=== PATIENT | male | born 1985 | race Two or more races ===

== ENCOUNTER 2018-10-22 06:35 | Emergency (ER) | payer SELFPAY ==
[~2018-10-22] VITALS: Ht 160 cm; Wt 67.1 kg
[2018-10-22] MEDS ORDERED: IV NORMAL SALINE 1000ML BAG 1,000 ML IV SCH (06:54)
--- NOTE | 2018-10-22 06:59 | PHYS DOC ---
Past Medical History Additional Past Surgical Histo: epidural Alcohol Use: Rarely Drug Use: None Adult General Chief Complaint Chief Complaint: ABDOMINAL PAIN HPI HPI Patient is a 38 year old male who presents with right lower quadrant abdominal pain that started early this morning. It has been getting worse over time. Describes it as a burning sensation with some nausea. Worse with movement. Worse with bumps on the car ride to the emergency department. Worse with walking. No vomiting or diarrhea. No radiation of the discomfort. Does note some dysuria. No hematuria. No fever. Patient notes that he had a relatively recent work injury, injuring his back. He had an epidural for this and is on 3 medicines that neither patient nor can recall for me. Does not have any chronic, ongoing health issues other than the injury.[] Review of Systems Review of Systems Constitutional: Denies fever or chills [] Eyes: Denies change in visual acuity, redness, or eye pain [] HENT: Denies nasal congestion or sore throat [] Respiratory: Denies cough or shortness of breath [] Cardiovascular: No chest pain or palpitations[] GI: See history of present illness[] : Denies dysuria or hematuria [] Musculoskeletal: Denies back pain beyond usual discomfort following his injury or joint pain [] Integument: Denies rash or skin lesions [] Neurologic: Denies headache, focal weakness or sensory changes [] Endocrine: Denies polyuria or polydipsia [] All other systems were reviewed and found to be within normal limits, except as documented in this note. Current Medications Current Medications Current Medications Medications (Trade) Dose Ordered Sig/Gianfranco Start Time Stop Time Status Last Admin Dose Admin Ketorolac Tromethamine (Toradol 15mg Vial) 15 mg 1X ONCE 10/22/18 08:15 10/22/18 08:16 10/22/18 08:14 15 MG Metoclopramide HCl (Reglan Vial) 10 mg 1X ONCE 10/22/18 07:30 10/22/18 07:31 DC 10/22/18 07:29 10 MG Morphine Sulfate (Morphine Sulfate) 4 mg PRN Q15MIN PRN 10/22/18 07:00 10/23/18 06:59 10/22/18 07:52 4 MG Ondansetron HCl (Zofran) 8 mg 1X ONCE 10/22/18 08:15 10/22/18 08:16 10/22/18 08:13 8 MG Sodium Chloride 1,000 ml @ 100 mls/hr Q10H 10/22/18 06:54 10/22/18 16:53 10/22/18 07:13 100 MLS/HR Allergies Allergies Allergies Coded Allergies Type Severity Reaction Last Updated Verified No Known Drug Allergies 10/22/18 No Physical Exam Physical Exam Constitutional: Well developed, well nourished, mild discomfort, holding still, non-toxic appearance. [] HENT: Normocephalic, atraumatic, bilateral external ears normal, oropharynx moist, no oral exudates, nose normal. [] Eyes: PERRLA, EOMI, conjunctiva normal, no discharge. [] Neck: Normal range of motion, no tenderness, supple, no stridor. [] Cardiovascular:Heart rate regular rhythm, no murmur [] Lungs & Thorax: Bilateral breath sounds clear to auscultation [] Abdomen: Bowel sounds normal, soft, tenderness in the right lower quadrant with positive Rovsing's sign, no masses, no pulsatile masses. [] Skin: Warm, dry, no erythema, no rash. [] Back: No tenderness, no CVA tenderness. [] Extremities: No tenderness, no cyanosis, no clubbing, ROM intact, no edema. [] Neurologic: Alert and oriented X 3, normal motor function, normal sensory function, no focal deficits noted. [] Psychologic: Affect normal, judgement normal, mood normal. [] Current Patient Data Vital Signs Vital Signs Date Time Temp Pulse Resp B/P (MAP) Pulse Ox O2 Delivery O2 Flow Rate FiO2 10/22/18 07:52 18 97 Room Air 10/22/18 07:02 97.5 74 123/73 (90) 97.5 Lab Values Laboratory Tests Test 10/22/18 06:40 10/22/18 06:50 Urine Collection Type Unknown Urine Color Yellow Urine Clarity Clear Urine pH 6.5 Urine Specific [place] 1.025 Urine Protein Negative mg/dL (NEG-TRACE) Urine Glucose (UA) Negative mg/dL (NEG) Urine Ketones (Stick) Negative mg/dL (NEG) Urine Blood Large (NEG) Urine Nitrite Negative (NEG) Urine Bilirubin Negative (NEG) Urine Urobilinogen Dipstick 0.2 mg/dL (0.2 mg/dL) Urine Leukocyte Esterase Negative (NEG) Urine RBC >40 /HPF (0-2) Urine WBC 1-4 /HPF (0-4) Urine Squamous Epithelial Cells Occ /LPF Urine Bacteria Few /HPF (0-FEW) Urine Mucus Marked /LPF White Blood Count 8.5 x10^3/uL (4.0-11.0) Red Blood Count 4.53 x10^6/uL (4.30-5.70) Hemoglobin 13.9 g/dL (13.0-17.5) Hematocrit 41.3 % (39.0-53.0) Mean Corpuscular Volume 91 fL (79-100) Mean Corpuscular Hemoglobin 31 pg (25-35) Mean Corpuscular Hemoglobin Concent 34 g/dL (31-37) Red Cell Distribution Width 13.5 % (11.5-14.5) Platelet Count 375 x10^3/uL (140-400) Neutrophils (%) (Auto) 51 % (31-73) Lymphocytes (%) (Auto) 40 % (24-48) Monocytes (%) (Auto) 7 % (0-9) Eosinophils (%) (Auto) 1 % (0-3) Basophils (%) (Auto) 0 % (0-3) Neutrophils # (Auto) 4.4 x10^3uL (1.8-7.7) Lymphocytes # (Auto) 3.4 x10^3/uL (1.0-4.8) Monocytes # (Auto) 0.6 x10^3/uL (0.0-1.1) Eosinophils # (Auto) 0.1 x10^3/uL (0.0-0.7) Basophils # (Auto) 0.0 x10^3/uL (0.0-0.2) Prothrombin Time 12.8 SEC (11.7-14.0) Prothrombin Time INR 1.0 (0.8-1.1) Sodium Level 143 mmol/L (136-145) Potassium Level 3.3 mmol/L (3.5-5.1) L Chloride Level 105 mmol/L (98-107) Carbon Dioxide Level 28 mmol/L (21-32) Anion Gap 10 (6-14) Blood Urea Nitrogen 17 mg/dL (8-26) Creatinine 0.8 mg/dL (0.7-1.3) Estimated GFR (Cockcroft-Gault) 108.2 BUN/Creatinine Ratio 21 (6-20) H Glucose Level 132 mg/dL (70-99) H Calcium Level 8.6 mg/dL (8.5-10.1) Total Bilirubin 0.5 mg/dL (0.2-1.0) Aspartate Amino Transferase (AST) 24 U/L (15-37) Alanine Aminotransferase (ALT) 46 U/L (16-63) Alkaline Phosphatase 73 U/L (46-116) Total Protein 7.4 g/dL (6.4-8.2) Albumin 3.7 g/dL (3.4-5.0) Albumin/Globulin Ratio 1.0 (1.0-1.7) Lipase 99 U/L (73-393) Laboratory Tests 10/22/18 06:50 Laboratory Tests 10/22/18 06:50 EKG EKG [] Radiology/Procedures Radiology/Procedures CT Abdomen without Contrast: Findings: Evaluation of solid organs is limited without contrast. Evaluation of stomach and bowel is limited without oral contrast. Liver: Normal. Spleen: Normal. Pancreas: Normal. Adrenal Glands: Normal. Kidneys: There is mild right hydronephrosis right hydroureter. There is no free air or free fluid. There is no lymphadenopathy. The appendix is normal. Impression: Please see CT Pelvis without Contrast. End Impression. CT Pelvis without Contrast: Findings: There is a 2 mm stone in the distal right ureter just above the UVJ. The urinary bladder appears normal. There is no free fluid. There is no lymphadenopathy. There is no pericolonic inflammation identified. Impression: 2 mm stone distal right ureter with mild right hydronephrosis.[] Course & Med Decision Making Course & Med Decision Making Pertinent Labs and Imaging studies reviewed. (See chart for details) ED course: Patient arrived, was placed in bed, in tolerated exam well. He did achieve some pain relief with the morphine. However, he continued to have nausea and vomiting despite an initial dose of Zofran, a follow-up dose of Reglan, but did seem to do better after a second larger dose of Zofran. After the return of the lab and imaging findings, these were discussed with the patient and family who voiced understanding. All questions were answered. Patient was discharged in improved condition. Medical decision making: Initially concerned about appendicitis given his presentation however this does not appear to be present on CT scanning. No evidence of intractable pain. No evidence of perforation. No evidence of an infected kidney stone. No evidence of acute renal dysfunction. No evidence of other significant intra-abdominal pathology at this time.[] Dragon Disclaimer Dragon Disclaimer This electronic medical record was generated, in whole or in part, using a voice recognition dictation system. Departure Departure Impression: Primary Impression: Kidney stone on right side Disposition: HOME, SELF-CARE Condition: IMPROVED Referrals: NON,STAFF (PCP) TYSON PAULA MD Follow-up in 2 days Patient Instructions: Diet for Kidney Stones, Kidney Stones Additional Instructions: Drink plenty of fluids. Follow-up with your regular doctor or urology in 2 days. Strain your urine and collect the kidney stone to bring with you to your doctor or urology appointment. Return to the ER if unable to tolerate liquids, he develop a fever of more than 101, or any other concerns. Scripts Hydrocodone/Apap 5-325 (NORCO 5-325 TABLET) 1 Each Tablet 1-2 EACH PO PRN Q6HRS PRN for SEVERE PAIN, #20 as needed for pain Prov: RYDER CASILLAS DO 10/22/18 Tamsulosin Hcl (FLOMAX) 0.4 Mg Cap.er.24h 0.4 MG PO DAILY for 10 Days, #10 TAB Prov: RYDER CASILLAS DO 10/22/18 Ondansetron Hcl (ZOFRAN) 4 Mg Tablet 4 MG PO PRN TID PRN for NAUSEA/VOMITING, #15 nausea/vomiting Prov: RYDER CASILLAS DO 10/22/18 Meloxicam (MELOXICAM) 7.5 Mg Tablet 7.5 MG PO DAILY, #20 TAB Prov: RYDER CASILLAS DO 10/22/18 RYDER CASILLAS DO Oct 22, 2018 06:59
[2018-10-22] MEDS ORDERED: ONDANSETRON PF 4 MG/2 ML VIAL. IV ONE ×2 (07:00→08:15)
[2018-10-22 07:10] LABS: BASO % 0 % (0-3); EOS # 0.1 x10^3/uL (0.0-0.7); EOS % 1 % (0-3); HEMATOCRIT 41.3 % (39.0-53.0); HEMOGLOBIN 13.9 g/dL (13.0-17.5); LYMPH # 3.4 x10^3/uL (1.0-4.8); LYMPH % 40 % (24-48); MEAN CORPUSCULAR HEMOGLOBIN 31 pg (25-35); MEAN CORPUSCULAR HGB CONC 34 g/dL (31-37); MEAN CORPUSCULAR VOLUME 91 fL (79-100); MONO # 0.6 x10^3/uL (0.0-1.1); MONO % 7 % (0-9); NEUT # 4.4 x10^3uL (1.8-7.7); NEUT % 51 % (31-73); PLATELET COUNT 375 x10^3/uL (140-400); RED BLOOD COUNT 4.53 x10^6/uL (4.30-5.70); RED CELL DISTRIBUTION WIDTH 13.5 % (11.5-14.5); WHITE BLOOD COUNT 8.5 x10^3/uL (4.0-11.0)
[2018-10-22 07:11] LABS: BILIRUBIN,URINE NEGATIVE (NEG); CLARITY,URINE CLEAR; COLOR,URINE YELLOW; NITRITE,URINE NEGATIVE (NEG); PH,URINE 6.5; PROTEIN,URINE NEGATIVE (NEG-TRACE); UROBILINOGEN,URINE 0.2 mg/dL (0.2 mg/dL)
[2018-10-22] MEDS: MORPHINE SULFATE 4 MG/ML VIAL. IV/SQ PRN ×3 (07:13→07:52)
[2018-10-22 07:15] LABS: PROTHROMBIN TIME PATIENT 12.8 SEC (11.7-14.0)
[2018-10-22 07:17] LABS: CALCIUM 8.6 mg/dL (8.5-10.1); CREATININE 0.8 mg/dL (0.7-1.3); GFR 108.2; POTASSIUM 3.3 mmol/L (3.5-5.1)
[2018-10-22 07:17] LABS: BACTERIA,URINE FEW /HPF (0-FEW); RBC,URINE >40 /HPF (0-2); SQUAMOUS EPITHELIAL CELL,UR OCC /LPF
[2018-10-22 07:23] LABS: ALBUMIN 3.7 g/dL (3.4-5.0); TOTAL BILIRUBIN 0.5 mg/dL (0.2-1.0); TOTAL PROTEIN 7.4 g/dL (6.4-8.2)
[2018-10-22] MEDS ORDERED: METOCLOPRAMIDE HCL 10 MG/2 ML VIAL. IV ONE (07:30)
--- NOTE | 2018-10-22 08:05 | RAD ---
Abdominal and Pelvis CT, Without Contrast: History: Hematuria and right lower quadrant pain. Comparison: None. Procedure: Axial images are obtained of the abdomen and pelvis, without IV or oral contrast. CT Abdomen without Contrast: Findings: Evaluation of solid organs is limited without contrast. Evaluation of stomach and bowel is limited without oral contrast. Liver: Normal. Spleen: Normal. Pancreas: Normal. Adrenal Glands: Normal. Kidneys: There is mild right hydronephrosis right hydroureter. There is no free air or free fluid. There is no lymphadenopathy. The appendix is normal. Impression: Please see CT Pelvis without Contrast. End Impression. CT Pelvis without Contrast: Findings: There is a 2 mm stone in the distal right ureter just above the UVJ. The urinary bladder appears normal. There is no free fluid. There is no lymphadenopathy. There is no pericolonic inflammation identified. Impression: 2 mm stone distal right ureter with mild right hydronephrosis. End impression PQRS Compliance Statement: One or more of the following individualized dose reduction techniques were utilized for this examination: 1. Automated exposure control 2. Adjustment of the mA and/or kV according to patient size 3. Use of iterative reconstruction technique Electronically signed by: Ralf Alba III, MD (10/22/2018 8:02 AM) [facility]
[2018-10-22] MEDS ORDERED: TAMS0.4C97 PO (08:15)
[2018-10-22] MEDS ORDERED: KETOROLAC 15 MG/ML VIAL. IV ONE (08:15)
[2018-10-22] MEDS ORDERED: HYDR-3164 PO (08:15)
[2018-10-22] MEDS ORDERED: ONDA4TAB7 PO (08:15)
[2018-10-22] MEDS ORDERED: MELO7.5T29 PO (08:15)
[2018-10-22 08:30] VITALS: BP 122/58
== END 2018-10-22 08:37 | disposition home or self-care (01) ==
LOC: EDBD 06:35 → ER 06:35
DX: N13.2 Hydronephrosis with renal and ureteral calculous obstruction (principal); R11.2 Nausea with vomiting, unspecified
CPT/HCPCS: 36415; 74176; 80053; 81001; 83690; 85025; 85610; 96374; 96375; 96376; 99284; J1885; J2270; J2405; J2765; J7030